=== PATIENT | female | born 1950 | race Caucasian/White ===

== ENCOUNTER 2019-07-16 01:53 | Emergency (ER) | payer OTHER ==
[~2019-07-16] VITALS: Ht 154.9 cm; Wt 105.2 kg
[2019-07-16 02:05] VITALS: BP_SYST 115
--- NOTE | 2019-07-16 02:25 | NUR ---
Placed in room 1. Placed on monitoring and evaluation advisor, blood pressure machine and pulse oximeter. Side rails up.
--- NOTE | 2019-07-16 02:25 | NUR ---
Pt states she takes Home meds of: Xarelto 5mg Once Daily Diltiazem 2mg BID Glipizide 10mg BID
--- NOTE | 2019-07-16 02:28 | NUR ---
Pt 68 YO F from home C/O of SOB since early this morning, sudden onset after waking up. Dyspnea noted on excertion after walking to bed. Denies any CP, N/V, appetite changes or any other symptoms at this time. Will continue to monitor.
--- NOTE | 2019-07-16 02:45 | NUR ---
ER Dr. Cross at bedside examining patient.
--- NOTE | 2019-07-16 02:59 | NUR ---
Xray at bedside
[2019-07-16 03:52] LABS: BASOPHILS # (AUTO) 0.1 K/uL (0.0-0.2); BASOPHILS % (AUTO) 0.9 % (0.0-2.0); EOSINOPHILS # (AUTO) 0.1 K/uL (0.0-0.4); EOSINOPHILS % (AUTO) 1.7 % (0.0-4.0); HEMATOCRIT 40.4 % (36-48); HEMOGLOBIN 13.5 g/dL (12.0-16.0); LYMPHOCYTES # (AUTO) 1.5 K/uL (1.0-5.5); LYMPHOCYTES % (AUTO) 22.8 % (20.5-51.5); MEAN CORPUSCULAR HEMOGLOBIN 32 pg (27-31); MEAN CORPUSCULAR HGB CONC 33 % (32-36); MEAN CORPUSCULAR VOLUME 95 fL (79.0-98.0); MONOCYTES # (AUTO) 0.3 K/uL (0.0-1.0); MONOCYTES % (AUTO) 5.3 % (1.7-9.3); NEUTROPHILS # (AUTO) 4.4 K/uL (1.8-7.7); NEUTROPHILS % (AUTO) 69.3 % (40.0-70.0); PLATELET COUNT (AUTO) 163 K/uL (130-430); RED BLOOD CELL COUNT(AUTO) 4.26 MIL/uL (4.2-6.2); RED CELL DISTRIBUTION WIDTH 13.5 % (9.0-15.0); WHITE BLOOD COUNT (AUTO) 6.4 K/uL (4.8-10.8)
--- NOTE | 2019-07-16 04:00 | NUR ---
Pt is sleeping in bed, respirations even and unlabored. Will continue to monitor
[2019-07-16 04:04] LABS: CREATININE 0.81 mg/dL (0.55-1.30); POTASSIUM 3.3 mmol/L (3.5-5.1)
[2019-07-16 04:07] LABS: INR 1.1 (0.8-1.2); PROTHROMBIN TIME 10.7 SECS (9.5-12.5)
[2019-07-16 04:09] LABS: ALBUMIN 2.7 g/dL (3.4-4.8); TOTAL BILIRUBIN 0.5 mg/dL (0.0-1.0)
--- NOTE | 2019-07-16 05:30 | NUR ---
Pt is sleeping in bed and states decreased work of breathing at this time. Will continue to monitor
[2019-07-16] MEDS ORDERED: LEVOFLOXACIN 500 MG/D5W 100 ML IV ONE (06:00)
--- NOTE | 2019-07-16 07:02 | NUR ---
Pt is resting quietly in bed, no acute distress at this time
--- NOTE | 2019-07-16 07:11 | NUR ---
Report given to Hilario GARCIA for continuation of care.
[2019-07-16 07:40] VITALS: BP_SYST 149
--- NOTE | 2019-07-16 07:40 | NUR ---
Patient given written and verbal discharge instructions and verbalizes understanding. ER MD discussed with patient the results and treatment provided. Patient in stable condition. ID arm band removed. IV catheter removed intact and dressing applied, no active bleeding. Rx of Vivian HART given. Patient educated on pain management and to follow up with PMD. Pain Scale 0/10. Opportunity for questions provided and answered. Medication side effect fact sheet provided.
== END 2019-07-16 07:40 | disposition home or self-care (01) ==
LOC: SED 01:53
DX: J18.9 Pneumonia, unspecified organism (principal); E11.9 Type 2 diabetes mellitus without complications; I10 Essential (primary) hypertension; Z88.8 Allergy status to other drugs, medicaments and biological substances
CPT/HCPCS: 36415; 71045; 80053; 82550; 83880; 84484; 85025; 85379; 85610; 87040; 87186; 93005; 96365; 99285; J1956; 99284